=== PATIENT | female | born 1940 | race Caucasian/White ===

== ENCOUNTER 2022-01-11 13:46 | Emergency (ER) | payer OTHER, MEDICARE ==
[~2022-01-11] VITALS: Ht 157.5 cm; Wt 78.0 kg
[2022-01-11 14:19] LABS: ABSOLUTE NEUTROPHILS 4.4 thou/uL (1.4-8.2); EOSINOPHILS 0.9 % (0.0-3.0); HEMATOCRIT 38.7 % (37.0-47.0); HEMOGLOBIN 12.9 gm/dL (12.0-15.0); LYMPHOCYTES 19.2 % (24.0-44.0); MCH 28.7 pg (26.0-34.0); MCHC 33.3 g/dL (28.0-37.0); MCV 86.2 fL (80.0-100.0); MONOCYTES 7.2 % (1.0-8.0); PLATELET COUNT 277 thou/uL (150-400); POLYS 71.7 % (36.0-66.0); RBC 4.49 mil/uL (4.20-5.00); RDW 14.3 % (10.5-14.5); WBC 6.1 thou/uL (4.0-11.0)
[2022-01-11 14:26] LABS: CALCIUM 9.9 mg/dL (8.5-10.1); CREATININE 0.7 mg/dL (0.6-1.0); POTASSIUM 4.1 mmol/L (3.5-5.1)
[2022-01-11 14:35] LABS: ALBUMIN 3.9 g/dL (3.4-5.0); TOTAL BILIRUBIN 0.7 mg/dL (0.2-1.0); TOTAL PROTEIN 7.6 g/dL (6.4-8.2)
[2022-01-11] MEDS ORDERED: PAXIL CR12.5 MG PO (17:38)
[2022-01-11 18:28] VITALS: BP 140/69
--- NOTE | 2022-01-12 11:16 | EKG ---
[address] [place] [address] ELECTROCARDIOGRAM REPORT Name: RADHA JENSEN [facility] [id number] Admission: 01/11/22 Attend Phys: Discharge: 01/11/22 Date of : 36 Report #: [id number] [facility] ED Test Date: 2022-01-11 Test Time: 14:00:15 Pat Name: RADHA JENSEN Department: Room: Gender: F Client Support Coordinator: LAURA : 1940 Requested By: Dina Egan Order Number: [id number] MD: Zhen Diaz Measurements Intervals [place] Rate: 68 P: 24 [place]: 170 QRS: -23 QRSD: 106 T: 30 QT: 407 QTc: 433 Interpretive Statements Sinus rhythm Poor R wave progression No previous ECG available for comparison Electronically Signed On 01-12-2022 11:16:40 [employer] by Zhen Diaz [email or web address] <ELECTRONICALLY SIGNED> By: Zhen Diaz MD, [facility] 01/12/22 1116 1400 [facility] Zhen Diaz MD, FACC /EPI
== END 2022-01-11 18:30 | disposition home or self-care (01) ==
LOC: ER 13:46
PROVIDERS: Emergency Medicine
DX: R06.00 Dyspnea, unspecified (principal); Z20.822 Contact with and (suspected) exposure to COVID-19; R07.89 Other chest pain; F41.9 Anxiety disorder, unspecified; I10 Essential (primary) hypertension